=== PATIENT | female | born 2000 | race Caucasian/White ===

== ENCOUNTER 2021-10-16 03:27 | Emergency (ER) | payer OTHER ==
[~2021-10-16] VITALS: Ht 167.6 cm; Wt 75.0 kg
[2021-10-16 03:39] VITALS: TEMP 97.2
[2021-10-16 04:13] LABS: BASO # 0.1 K/mm3 (0.0-0.2); BASO % 0.5 % (0.0-2.0); EOS # 0.1 K/mm3 (0.0-0.7); EOS % 0.8 % (0.0-4.0); GRAN # 6.4 K/mm3 (1.4-6.5); GRAN % 60.5 % (42.2-75.2); HEMATOCRIT 37.7 % (37.0-47.0); HEMOGLOBIN 13.2 g/dl (12.5-16.0); LYMPH # 3.4 K/mm3 (1.2-3.4); LYMPH % 32.4 % (20.0-51.0); MEAN CELL VOLUME 82 fl (80.0-100.0); MEAN CORPUSCULAR HEMOGLOBIN 29 pg (27-31); MEAN CORPUSCULAR HGB CONC 35 g/dl (33.0-37.0); MEAN PLATELET VOLUME 11.2 fl (7.4-10.4); MONO # 0.6 K/mm3 (0.1-0.6); MONO % 5.5 % (1.7-9.3); PLATELET COUNT 251 K/mm3 (130-400); RED BLOOD COUNT 4.61 M/mm3 (4.10-5.30); REDCELL DISTRIBUTION WIDTH-CV 12.6 % (11.5-14.5)
[2021-10-16 04:28] LABS: ALBUMIN 4.5 gm/dL (3.5-5.0); BILIRUBIN,TOTAL 0.7 mg/dL (0.2-1.2); CALCIUM 9.6 mg/dL (8.4-10.2); CREATININE, serum 0.72 mg/dL (0.57-1.11); POTASSIUM 3.2 mmol/L (3.5-4.5); TOTAL PROTEIN 8.1 gm/dL (6.2-8.1)
[2021-10-16] MEDS ORDERED: ZOFRAN ODT4 MG PO (06:25)
[2021-10-16 06:34] VITALS: BP 123/91; PULSE 81
== END 2021-10-16 06:34 | disposition home or self-care (01) ==
LOC: COL.ER 03:27 → EDBD 03:28 → COL.ER 03:28
PROVIDERS: Personal Emergency Response Attendant
DX: R11.2 Nausea with vomiting, unspecified (principal); R19.7 Diarrhea, unspecified
CPT/HCPCS: J1790; J2270; J2405; J7030